=== PATIENT | male | born 1930 | race Caucasian/White ===

== ENCOUNTER 2016-12-03 14:44 | Emergency (ER) | payer OTHER ==
[2016-12-03] MEDS ORDERED: CEPHALEXIN 500 MG CAP PO ONE (14:49)
[2016-12-03] MEDS ORDERED: TDAP ADULT 0.5 ML INJ (BOOSTRIX) IM ONE (14:50)
--- NOTE | 2016-12-03 14:52 | EDPHY ---
H & P Time Seen by Provider: 12/03/16 14:45 HPI/ROS: CHIEF COMPLAINT: Multiple lacerations left hand HISTORY OF PRESENT ILLNESS: 86-year-old male with out-of-date tetanus arrives via ambulance from his home [facility] after he was using a drill press to drill a strap of metal , the metal spun around and he sustained multiple laceration to the distal phalanx of the digits of the left hand. No paresthesia. No sensory deficit. PRIMARY CARE PROVIDER: 's Administration REVIEW OF SYSTEMS: A ten point review of systems was performed and is negative with the exception of the items mentioned in the HPI PHYSICAL EXAM (Prior to examination, patient consented to physical exam, hands were washed and my usual and customary physical exam procedures followed) 1) GENERAL: Well-developed, well-nourished, alert and oriented. Appears to be in no acute distress. 2) HEAD: Normocephalic 3) HEENT: sclera anicteric 4) LUNGS: Breathing comfortably. 5) SKIN: * left 2nd digit and thumb/1st digit he has an abrasion to the distal phalanx. * Left 3rd digit distal phalanx palmar aspect transverse 1.5 cm laceration * Left 4th digit distal phalanx palmar aspect transverse 1.0 cm laceration * Left 5th digit distal phalanx palmar aspect transverse 0.75 cm laceration. * * At all digits flexor, extensor function at the MCP, PIP, DIP, and IP of the thumb, intact with no deficits. Smoking Status: Former smoker Constitutional: Initial Vital Signs Temperature (C) 36.8 C 12/03/16 14:44 Heart Rate 78 12/03/16 14:44 Respiratory Rate 16 12/03/16 14:44 Blood Pressure 143/103 H 12/03/16 14:44 O2 Sat (%) 99 12/03/16 14:44 O2 Delivery Mode Nasal Cannula O2 (L/minute) 3 Allergies/Adverse Reactions: simvastatin Allergy (Verified 08/21/14 16:35) Other-Enter Comments Home Medications: Medication Instructions Recorded Aspirin [Aspirin 81mg (*)] 81 mg PO DAILY 08/21/14 Atenolol [Tenormin 25 mg (*)] 25 mg PO DAILY 08/23/14 Albuterol Sulfate [Albuterol 1 - 2 puffs IH Q4 PRN #1 hfa.aer.ad 08/27/14 Inhaler Hfa] Tamsulosin HCl [Flomax 0.4 MG (*)] 0.4 mg PO HS #30 cap 08/27/14 Cephalexin [Keflex] 500 mg PO TID 5 Days 12/03/16 Lasix 12/03/16 MDM/Departure - MDM Diagnostics: Imaging Impressions Hand X-Ray 12/03/16 14:50 Impression: No bone injury identified. Procedures: Procedure: Laceration repair. I explained the indications, risks and benefits for both laceration repair and anesthetic administration. Verbal consent was obtained from the [patient] . The laceration on the distal phalanx of all digits. All digits were anesthetized was visual nerve block of [0.5% bupivicaine] [with][out] [ epinephrine] [digital nerve block]. After anesthetic administered the patient was observed for a period of time and had no apparent adverse effects. The wounds were cleaned, prepped, draped in normal sterile fashion and explored to its base. No foreign body seen, no foreign bodies palpated. the 1st and 2nd digit abrasions were cleaned , no closure indicated The 3rd digit laceration closed with 6 simple interrupted 5 O Ethilon suture The 4th digit laceration closed with 5 simple interrupted 5 O Ethilon suture The 5th digit laceration closed with 3 simple interrupted 5 O Ethilon suture Medications Given: Discontinued Medications Cephalexin HCl (Keflex) 500 mg PO EDNOW ONE PRN Reason: Protocol Stop: 12/03/16 14:50 Last Admin: 12/03/16 15:15 Dose: 500 mg Diphtheria/Tetanus/Acell Pertussis (Boostrix) 0.5 ml IM .ONCE ONE Stop: 12/03/16 14:51 Last Admin: 12/03/16 15:07 Dose: 0.5 ml - Depart Disposition: Home, Routine, Self-Care Clinical Impression: Laceration of multiple sites of left hand and fingers Qualifiers: Encounter type: initial encounter Qualified Code(s): S61.412A - Laceration without foreign body of left hand, initial encounter Condition: Good Instructions: Laceration (ED) Additional Instructions: Return to the ER if you develop redness, swelling, discharge, warmth to the wound, red streaks going up your arm , or any other symptoms that concern you. Prescriptions: Cephalexin [Keflex] 500 mg PO TID 5 Days Referrals: Ainsley Kauffman MD [Medical Doctor] - 2-3 days, call for appt. (Dr. Ainsley Kauffman is a hand surgeon. Your sutures need to be removed in 10 days)
[2016-12-03 16:12] VITALS: BP 143/92; PULSE 72; RESP 20; TEMP 97.9; O2SAT 100
== END 2016-12-03 16:46 | disposition home or self-care (01) ==
LOC: EDUNIT#
PROC: 0HQGXZZ Repair Left Hand Skin, External Approach (ICD-10-PCS; principal; 2016-12-03)
DX: S61.412A Laceration without foreign body of left hand, initial encounter (principal); Z23 Encounter for immunization; Z79.82 Long term (current) use of aspirin; Z87.891 Personal history of nicotine dependence; W29.8XXA Contact with other powered hand tools and household machinery, initial encounter; Y92.009 Unspecified place in unspecified non-institutional (private) residence as the place of occurrence of the external cause